=== PATIENT | female | born 1950 | race Caucasian/White ===

== ENCOUNTER 2018-01-21 09:05 | Inpatient (IN) | payer OTHER ==
[~2018-01-21] VITALS: Ht 170.2 cm; Wt 90.7 kg
[~2018-01-21 09:05] MED LIST: CIPRO500 MG PO; METRONIDAZOLE500 MG ORAL; VENLAFAXINE HC150 M2 ORAL
[2018-01-21 09:10] VITALS: BP 116/95
[2018-01-21] MEDS ORDERED: IBUPROFEN800 M1 PO (09:11)
[2018-01-21] MEDS ORDERED: VENLAFAXINE HCL75 MG ORAL (09:18)
[2018-01-21] MEDS ORDERED: TRAMADOL HCL50 MG ORAL (09:18)
[2018-01-21] MEDS ORDERED: ASPIR-LOW81 MG ORAL (09:18)
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
[2018-01-21] MEDS ORDERED: cefTRIAXone 1 GM in NS 55 ML IVPB ONE (09:30)
[2018-01-21] MEDS ORDERED: cefTRIAXone 1 GM in D5W 55 ML IVPB SCH (09:30)
[2018-01-21] MEDS ORDERED: Morphine Sulfate 4mg/ml Inj IVP ONE (09:30)
[2018-01-21] MEDS: Bacitracin Oint 15gm Tube TOPIC SCH ×3 (09:48→20:41)
[2018-01-21 09:53] LABS: HEMATOCRIT 39.5 % (37.0-47.0); HEMOGLOBIN 14.1 G/DL (12.0-16.0); MEAN CORPUSCULAR VOLUME 92 FL (80-99); PLATELET COUNT 324 K/UL (150-450); RED BLOOD COUNT 4.28 M/UL (4.20-5.40); RED CELL DISTRIBUTION WIDTH 13.1 % (11.6-14.8); WHITE BLOOD COUNT 13.6 K/UL (4.8-10.8)
[2018-01-21 10:22] LABS: ANION GAP 14 mmol/L (5-15); BLOOD UREA NITROGEN 5 mg/dL (7-18); CALCIUM 8.5 MG/DL (8.5-10.1); CARBON DIOXIDE 23 MMOL/L (21-32); CHLORIDE 99 MMOL/L (98-107); CREATININE 0.6 MG/DL (0.55-1.30); POTASSIUM 3.4 MMOL/L (3.5-5.1); SODIUM 136 MMOL/L (136-145)
[2018-01-21 10:25] LABS: ALANINE AMINOTRANSFERASE 38 U/L (12-78); ALBUMIN 3.3 G/DL (3.4-5.0); ALKALINE PHOSPHATASE 92 U/L (46-116); ASPARTATE AMINO TRANSFERASE 27 U/L (15-37)
[2018-01-21 10:58] VITALS: BP 150/82
[2018-01-21] MEDS ORDERED: Albuterol/Ipratropium 3ml neb HHN PRN (14:45)
[2018-01-21] MEDS ORDERED: Morphine Sulfate 4mg/ml Inj IVP PRN (14:45)
[2018-01-21 15:04] VITALS: BP 148/79
[2018-01-21] MEDS ORDERED: Nitroglycerin Subl 0.4mg tab SL PRN (15:30)
[2018-01-21] MEDS ORDERED: Miralax 17gm pkt ORAL PRN (15:30)
[2018-01-21 16:06] VITALS: BP 153/66
[2018-01-21] MEDS: Cefepime HCl 2 GM in D5W 110 ML IV SCH (18:20)
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
[2018-01-21] MEDS: Vancomycin 1 GM in D5W 275 ML IVPB SCH (18:55)
[2018-01-21 19:33] VITALS: BP 154/80
[2018-01-21] MEDS: Heparin 5000 units/ml inj SUBQ SCH (20:42)
[2018-01-22] VITALS: BP 159/74
[2018-01-22] MEDS: Vancomycin 1 GM in D5W 275 ML IVPB SCH ×2 (05:28→17:48)
[2018-01-22 08:00] VITALS: BP 135/75
[2018-01-22 08:15] LABS: BASOPHILS % (AUTO) 0.5 % (0.0-2.0); EOSINOPHILS % (AUTO) 0.1 % (0.0-3.0); HEMATOCRIT 40.1 % (37.0-47.0); HEMOGLOBIN 13.8 G/DL (12.0-16.0); LYMPHOCYTES % (AUTO) 7.7 % (20.0-45.0); MEAN CORPUSCULAR VOLUME 94 FL (80-99); MONOCYTES % (AUTO) 7.5 % (1.0-10.0); NEUTROPHILS % (AUTO) 84.2 % (45.0-75.0); PLATELET COUNT 302 K/UL (150-450); RED BLOOD COUNT 4.24 M/UL (4.20-5.40); RED CELL DISTRIBUTION WIDTH 13.8 % (11.6-14.8); WHITE BLOOD COUNT 11.2 K/UL (4.8-10.8)
[2018-01-22] MEDS: Bacitracin Oint 15gm Tube TOPIC SCH ×3 (08:24→17:48)
[2018-01-22] MEDS: Cefepime HCl 2 GM in D5W 110 ML IV SCH (08:26)
[2018-01-22] MEDS: Heparin 5000 units/ml inj SUBQ SCH ×2 (08:26→20:52)
[2018-01-22 08:38] LABS: ALANINE AMINOTRANSFERASE 35 U/L (12-78); ALBUMIN 3.2 G/DL (3.4-5.0); ALBUMIN/GLOBULIN RATIO 0.9 (1.0-2.7); ALKALINE PHOSPHATASE 90 U/L (46-116); ANION GAP 9 mmol/L (5-15); ASPARTATE AMINO TRANSFERASE 25 U/L (15-37); BILIRUBIN,TOTAL 1.4 MG/DL (0.2-1.0); BLOOD UREA NITROGEN 5 mg/dL (7-18); CALCIUM 9.1 MG/DL (8.5-10.1); CARBON DIOXIDE 29 MMOL/L (21-32); CHLORIDE 98 MMOL/L (98-107); CREATININE 0.7 MG/DL (0.55-1.30); POTASSIUM 3.7 MMOL/L (3.5-5.1); SODIUM 136 MMOL/L (136-145)
[2018-01-22 08:39] LABS: BILIRUBIN,DIRECT 0.2 MG/DL (0.0-0.3)
[2018-01-22 12:00] VITALS: BP 140/89
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
[2018-01-22] MEDS ORDERED: Thiamine 100mg tab ORAL SCH (15:00)
[2018-01-22] MEDS ORDERED: Venlafaxine XR 150mg cap ORAL SCH (15:00)
[2018-01-22 16:00] VITALS: BP 140/84
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
[2018-01-22 19:30] VITALS: BP 141/79
[2018-01-23] VITALS: BP 140/80
[2018-01-23 04:00] VITALS: BP 132/60
[2018-01-23] MEDS: Vancomycin 1 GM in D5W 275 ML IVPB SCH (06:17)
[2018-01-23 07:40] LABS: ALANINE AMINOTRANSFERASE 31 U/L (12-78); ALBUMIN 2.7 G/DL (3.4-5.0); ALBUMIN/GLOBULIN RATIO 0.8 (1.0-2.7); ALKALINE PHOSPHATASE 73 U/L (46-116); ANION GAP 7 mmol/L (5-15); ASPARTATE AMINO TRANSFERASE 19 U/L (15-37); BILIRUBIN,TOTAL 0.8 MG/DL (0.2-1.0); BLOOD UREA NITROGEN 3 mg/dL (7-18); CARBON DIOXIDE 30 MMOL/L (21-32); CHLORIDE 99 MMOL/L (98-107); CREATININE 0.5 MG/DL (0.55-1.30); SODIUM 136 MMOL/L (136-145)
[2018-01-23 07:41] LABS: BASOPHILS % (AUTO) 0.6 % (0.0-2.0); EOSINOPHILS % (AUTO) 0.7 % (0.0-3.0); HEMOGLOBIN 13.4 G/DL (12.0-16.0); LYMPHOCYTES % (AUTO) 18.1 % (20.0-45.0); MEAN CORPUSCULAR VOLUME 93 FL (80-99); NEUTROPHILS % (AUTO) 73.6 % (45.0-75.0); PLATELET COUNT 243 K/UL (150-450); RED BLOOD COUNT 3.98 M/UL (4.20-5.40); RED CELL DISTRIBUTION WIDTH 13.1 % (11.6-14.8); WHITE BLOOD COUNT 6.5 K/UL (4.8-10.8)
[2018-01-23 08:00] VITALS: BP 137/73
[2018-01-23] MEDS: Venlafaxine XR 150mg cap ORAL SCH (08:43)
[2018-01-23] MEDS: Bacitracin Oint 15gm Tube TOPIC SCH ×3 (08:44→18:30)
[2018-01-23] MEDS: Thiamine 100mg tab ORAL SCH (08:44)
[2018-01-23] MEDS: Heparin 5000 units/ml inj SUBQ SCH ×2 (08:44→20:34)
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
[2018-01-23 12:00] VITALS: BP 139/93
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
[2018-01-23 16:00] VITALS: BP 152/94
[2018-01-23] MEDS: Vancomycin 1.5 GM/D5W 250ML IVPB SCH (16:10)
[2018-01-23 20:00] VITALS: BP 138/81
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
[2018-01-24] VITALS (7 sets, daily range): BP systolic 122–138; BP diastolic 68–91
[2018-01-24] MEDS: Vancomycin 1.5 GM/D5W 250ML IVPB SCH ×2 (04:13→16:57)
[2018-01-24] MEDS: Venlafaxine XR 150mg cap ORAL SCH (08:31)
[2018-01-24] MEDS: Thiamine 100mg tab ORAL SCH (08:31)
[2018-01-24] MEDS: Bacitracin Oint 15gm Tube TOPIC SCH ×3 (08:31→18:46)
[2018-01-24] MEDS: Heparin 5000 units/ml inj SUBQ SCH ×2 (08:32→20:18)
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
[2018-01-25 04:00] VITALS: BP 107/65
[2018-01-25] MEDS: Vancomycin 1.5 GM/D5W 250ML IVPB SCH (05:13)
[2018-01-25 08:00] VITALS: BP 118/86
[2018-01-25] MEDS: Bacitracin Oint 15gm Tube TOPIC SCH ×3 (09:27→18:26)
[2018-01-25] MEDS: Venlafaxine XR 150mg cap ORAL SCH (09:27)
[2018-01-25] MEDS: Thiamine 100mg tab ORAL SCH (09:27)
[2018-01-25] MEDS: Heparin 5000 units/ml inj SUBQ SCH ×2 (09:29→20:11)
[2018-01-25 11:53] VITALS: BP 142/79
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
--- NOTE | 2018-01-25 15:53 | General Progress Note ---
Assessment/Plan Status: stable, progressing Subjective Date patient seen: Jan 24, 2018 Neurologic/Psychiatric: Reports: anxiety, depressed, emotional problems Allergies: Coded Allergies: NO KNOWN ALLERGIES (Unverified Allergy, Unknown, 09/24/15) Objective Last 24 Hour Vital Signs Date Time Temp Pulse Resp B/P (MAP) Pulse Ox O2 Delivery O2 Flow Rate FiO2 01/25/18 11:53 98.2 71 18 142/79 99 98.2 01/25/18 08:18 76 16 Room Air 21 01/25/18 08:00 97.9 105 18 118/86 98 97.9 01/25/18 04:00 98.1 74 18 107/65 100 Room Air 98.1 01/24/18 23:50 97.3 82 18 126/68 97 Room Air 97.3 01/24/18 22:00 78 16 Room Air 21 01/24/18 20:00 98.0 77 18 123/86 98 Room Air 98.0 01/24/18 16:09 98.4 76 18 137/91 98 Room Air 98.4 Intake and Output 01/24/18 01/25/18 18:59 06:59 Intake Total 1000 ml Balance 1000 ml Intake Oral 1000 ml Laboratory Tests 01/24/18 15:56: Vancomycin Level Trough 11.6 Height (Feet): 5 Height (Inches): 7.00 Weight (Pounds): 200 General Appearance: WD/WN, no apparent distress, alert Neurologic: alert, oriented x 3, responsive, depressed affect Nurys Ross M.D. Jan 25, 2018 15:53
[2018-01-25 16:00] VITALS: BP 144/76
[2018-01-25 19:20] VITALS: BP 150/88
--- NOTE | 2018-01-25 22:15 | Progress Note ---
DATE: 01/25/2018 SUBJECTIVE: The patient is gradually improving, has episodes of anxiety. The patient is calmer and tolerating medications, not withdrawing from alcohol. MENTAL STATUS EXAMINATION: The patient is alert and oriented x4. Mood is dysphoric. Affect is constricted. Thought process is concrete. Thought content, no suicidal or homicidal ideations. ASSESSMENT: 1. Alcohol dependence. 2. Alcohol withdrawal. 3. Depression. PLAN: 1. We will continue the Valium p.r.n. 2. Continue the Effexor. 3. Provide the patient with supportive therapy and reality orientation. Nurys Ross M.D. DR: MONSE JOB#: [id number] CC:
[2018-01-25 23:19] VITALS: BP 111/42
[2018-01-26 04:27] VITALS: BP 108/36
[2018-01-26 08:00] VITALS: BP 131/78
[2018-01-26] MEDS: Thiamine 100mg tab ORAL SCH (08:56)
[2018-01-26] MEDS: Bacitracin Oint 15gm Tube TOPIC SCH ×2 (08:56→13:23)
[2018-01-26] MEDS: Venlafaxine XR 150mg cap ORAL SCH (08:56)
[2018-01-26] MEDS: Heparin 5000 units/ml inj SUBQ SCH (08:57)
[2018-01-26 12:00] VITALS: BP 156/89
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
[2018-01-26 15:53] VITALS: BP 152/86
[2018-01-26] MEDS ORDERED: ACETAMINOPHEN325 M1 ORAL (16:44)
[2018-01-26] MEDS ORDERED: VALIUM10 MG ORAL (16:46)
[2018-01-26] MEDS ORDERED: RESTORIL15 MG ORAL (16:47)
[2018-01-26] MEDS ORDERED: ZOFRAN4 M1 ORAL (16:49)
[2018-01-26] MEDS ORDERED: VITAMIN B-1100 M2 PO (16:51)
[2018-01-26] MEDS ORDERED: FOLIC ACID1 MG ORAL (16:51)
[2018-01-26] MEDS ORDERED: EFFEXOR-XR150 MG ORAL (16:52)
[2018-01-26] MEDS ORDERED: BACITRACIN10 GM TOP (16:53)
[2018-01-26] MEDS ORDERED: NS 275ml ONE (17:27)
--- NOTE | 2018-01-26 22:31 | General Progress Note ---
Assessment/Plan Status: stable, progressing Subjective Date patient seen: January 26, 2018 Neurologic/Psychiatric: Reports: anxiety, depressed, emotional problems Allergies: Coded Allergies: NO KNOWN ALLERGIES (Unverified Allergy, Unknown, 09/24/15) Objective Last 24 Hour Vital Signs Date Time Temp Pulse Resp B/P (MAP) Pulse Ox O2 Delivery O2 Flow Rate FiO2 01/26/18 15:53 98.3 82 20 152/86 96 98.3 01/26/18 12:00 97.7 76 20 156/89 99 97.7 01/26/18 08:00 96.0 70 20 131/78 100 96.0 01/26/18 08:00 78 16 Room Air 21 01/26/18 04:27 97.3 64 20 108/36 97 Room Air 97.3 01/25/18 23:19 97.5 82 20 111/42 98 Room Air 97.5 Intake and Output 01/25/18 01/26/18 19:00 07:00 Intake Total 690 ml Balance 690 ml Intake Oral 690 ml # Voids 3 4 Height (Feet): 5 Height (Inches): 7.00 Weight (Pounds): 200 General Appearance: WD/WN, no apparent distress, alert Neurologic: oriented x 3, responsive, depressed affect Nurys Ross M.D. January 26, 2018 22:31
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
== END 2018-01-26 17:28 | disposition home or self-care (01) | DRG 935 ==
LOC: EDBD 09:05 → EDBEDREQ 09:40 → EMR 09:45 → 4W 13:25 → EDBEDREQ 13:44
DX: T21.29XA Burn of second degree of other site of trunk, initial encounter (principal); L03.818 Cellulitis of other sites; T21.25XA Burn of second degree of buttock, initial encounter; T24.211A Burn of second degree of right thigh, initial encounter; X16.XXXA Contact with hot heating appliances, radiators and pipes, initial encounter; W01.198A Fall on same level from slipping, tripping and stumbling with subsequent striking against other object, initial encounter; Y92.009 Unspecified place in unspecified non-institutional (private) residence as the place of occurrence of the external cause; F32.9 Major depressive disorder, single episode, unspecified; F10.20 Alcohol dependence, uncomplicated; I49.9 Cardiac arrhythmia, unspecified
CPT/HCPCS: 36415; 80053; 80202; 82248; 84134; 85007; 85025; 87040; 87181; 93970; 94664; 99285; J2405; J8499